=== PATIENT | male | born 1945 | race Caucasian/White ===

== ENCOUNTER 2022-06-21 13:12 | Inpatient (IN) | payer MEDICARE, SELFPAY ==
[2022-06-21] VITALS (137 sets, daily range): BP systolic 113–157; BP diastolic 46–102; PULSE 69–112; RESP 7–33; TEMP 36.5–36.8; O2SAT 91–96
--- NOTE | 2022-06-21 13:29 | ED.GENADUL_ITS ---
Discharge Plan Disposition Patient Disposition: Admit to [facility] Discharge Details Chief Complaint: Seizure Clinical Impression: Alcohol withdrawal seizure Primary Care Provider: Nhung,Local ED Provider: Rina Patiño Home Meds and New Rx's Prescriptions: No Action tamsulosin [Flomax] 0.4 mg Capsule 0.4 mg PO DAILY Medical Decision Making Medical Records Medical records reviewed: Yes I reviewed the patient's medical records. Medical records narrative: 1330 -- 76-year-old male with history of daily alcohol use and previous possible alcohol withdrawal seizure presents for witnessed seizure prior to arrival. He drinks 3-6 beers daily and last drink was yesterday afternoon. Patient appears somewhat confused as he does not remember the events of today. He has no acute complaints. He has no focal deficits on exam. He does appear somewhat slowed in his responses but is oriented x3. Heart rate 100s. Oxygen saturation 91% on room air. Lung sounds clear throughout. Consider aspiration pneumonia or PE. Suspect likely alcohol withdrawal seizure. Will obtain screening labs, CT head, CT chest, urinalysis, UDS, salicylates, acetaminophen and give IV fluids and IV Ativan to prevent additional seizure activity. Discussed concerns with daughter and son at bedside and that most likely patient will need admission to the hospital for continued monitoring for possible alcohol withdrawal seizure. They are requesting transfer to [facility] in [place] as this is close to home. 1600 --Labs and imaging reviewed. Normal white blood cell count. Bicarb 19, anion gap 17 which is likely consistent with post seizure activity. Remainder of labs reassuring. Urinalysis negative for infection. Negative salicylates and acetaminophen level. UDS positive for THC. FLUVID negative. CT head negative for acute findings. CT chest notes atelectasis or pneumonia in the lung bases. On reassessment patient appears more alert and answering questions more quickly. His oxygen saturation is 99% on room air and has no complaint of shortness of breath so do not suspect pneumonia at this time. We will consult [facility] for transfer. 1830 -- [facility] does not have any beds available but there may be some availability tomorrow if patient would want transfer there. Recommends admission here and consideration for transfer if indicated and desired. Plan discussed with son Aime and he is agreeable with admission here. 1900 --Case discussed with hospitalist who accepts patient for admission. Imaging Data Radiologic Study: Radiologist's impression: CT HEAD WO CLINICAL HISTORY: ? s/p seizure, r/o acute cva, mass. ? TECHNIQUE:? Imaging Protocol: Axial computed tomography images with coronal and sagittal reformatted images were created and reviewed COMPARISON:? No exams were available for comparison FINDINGS: The examination is limited due to patient motion artifact. Ventricles and Extra axial spaces: Normal in size and morphology for the patient's age. Hemorrhage: None. Cerebral parenchyma: No acute territorial infarct is seen.? Midline shift: None. Brainstem/Cerebellum: Normal. Calvarium: Normal. Visualized Paranasal sinuses/Mastoids: Clear. Soft Tissues: Unremarkable. IMPRESSION: 1. The examination is limited due to patient motion artifact. 2. No acute intracranial process. 3. Findings were discussed with the emergency department on 06/21/2022. CT CHEST PE CTA CLINICAL HISTORY: ? tachycardia, hypoxia, r/o PE. TECHNIQUE:? Imaging Protocol:? Axial CT angiography was performed with multi- slice acquisition and multi-planar and/or 3D reconstructions. CONTRAST MATERIAL:? Intravenous: Omnipaque 350 contrast volume:100 mL COMPARISON:? No exams were available for comparison FINDINGS: ?The examination is limited due to patient motion artifact. Tracheobronchial tree: Patent where visualized. Pulmonary parenchyma: There are bilateral basilar infiltrates present.? No architectural distortion. There is a calcified granuloma in the left lingula. Pulmonary Arteries: No evidence of filling defect to suggest pulmonary emboli. Mediastinum and Brii: No dominant adenopathy or fluid collection.? The esophagus is unremarkable.? Calcified lymph nodes are seen in the left hilum. Visualized thyroid gland: Unremarkable.? Pleura: No effusion or pneumothorax. Heart: The heart is not dilated. Coronary artery calcifications are present.? There is no evidence of right heart strain.? The RV to LV ratio is less than 1. No pericardial effusion.? Aorta: Thoracic aorta non-dilated. No evidence of dissection. Atherosclerosis is present. Upper abdomen:? Unremarkable. Soft tissues: Unremarkable.? Bones: Within normal limits for the patient's age.There are old healed left rib fractures.? Postsurgical changes are seen in the lower cervical and upper thoracic spine and the lower thoracic and lumbar spine. IMPRESSION: 1. No evidence of pulmonary embolism, thoracic aortic dissection or aneurysm.? 2. Bilateral dependent basilar infiltrates which may represent atelectasis.? Pneumonia cannot be entirely excluded.? Please correlate clinically. 3. Findings were discussed with Dr. Patiño at 3:33 p.m. on 06/21/2022. Lab Data Lab results reviewed: Yes I reviewed the patient's lab results. Labs: Laboratory Tests Range/Units 06/21/22 06/21/22 06/21/22 13:24 13:24 13:24 WBC (4.4-10.8) 10^3/uL 8.83 RBC (4.36-5.78) 10^6/uL 5.04 Hgb (13.5-17.5) g/dL 15.2 Hct (40.0-50.0) % 45.2 MCV (80-95) fL 90 MCH (27.0-33.0) pg 30.2 MCHC (32.0-36.0) % 33.6 RDW (11.8-14.1) % 12.2 Plt Count (130-400) 10^3/uL 235 MPV (8.0-11.0) fL 10.2 Immature Gran % 0.2 Neutrophils % 62.8 Lymphocytes % 25.1 Monocytes % 9.2 Eosinophils % 1.8 Basophils % 0.9 Nucleated RBC % (0.0-0.3) % 0.0 Absolute Neutrophils (1.2-6.7) 10^3/uL 5.54 Absolute Lymphocytes (1.2-3.4) 10^3/uL 2.22 Absolute Monocytes (0.1-0.8) 10^3/uL 0.81 H Absolute Eosinophils (0.0-0.7) 10^3/uL 0.16 Absolute Basophils (0.0-0.2) 10^3/uL 0.08 Sodium (136-145) mmol/L 136 Potassium (3.5-5.1) mmol/L 4.1 Chloride (98-107) mmol/L 100 Carbon Dioxide (21.0-32.0) mmol/L 19.0 L Anion Gap (3-11) mmol/L 17.0 H BUN (7-18) mg/dL 14 Creatinine (0.70-1.30) mg/dL 1.2 Est GFR (CKD-EPI 2020) (mL/min/1.73m2) 62.29 Glucose (74-106) mg/dL 101 Calcium (8.5-10.1) mg/dL 9.2 Magnesium (1.8-2.4) mg/dL 2.0 Total Bilirubin (0.2-1.0) mg/dL 0.6 AST (15-37) U/L 39 H ALT (16-63) U/L 31 Alkaline Phosphatase (46-116) U/L 96 Creatine Kinase (39-308) U/L 195 Troponin I (<or=60) ng/L < 50 Total Protein (6.4-8.2) g/dL 7.2 Albumin (3.4-5.0) g/dL 3.9 Urine Color (Yellow) Urine Clarity (Clear) Urine pH (5-8) Ur Specific Belva (1.005-1.025) Urine Protein (Negative) mg/dL Urine Ketones (Negative) mg/dL Urine Blood (Negative) Urine Nitrite (Negative) Urine Bilirubin (Negative) Urine Urobilinogen (Up to 0.2) mg/dL Ur Leukocyte Esterase (Negative) Urine Glucose (Negative) mg/dL Salicylates (<2.8) mg/dL Urine Opiates Screen (Negative) Urine Methadone Screen (Negative) Acetaminophen (10-30) ug/mL Ur Barbiturates Screen (Negative) Ur Tricyclics Screen (Negative) Ur Amphetamines Screen (Negative) U Benzodiazepines Scrn (Negative) Urine Cocaine Screen (Negative) Ur THC Screen (Negative) Ethyl Alcohol (<10) mg/dL < 3.0 COVID-19 Source SARS-CoV-2 (PCR) (Negative) Influenza Type A (PCR) (Negative) Influenza Type B (PCR) (Negative) RSV (PCR) (Negative) Range/Units 06/21/22 06/21/22 06/21/22 14:00 14:00 15:37 WBC (4.4-10.8) 10^3/uL RBC (4.36-5.78) 10^6/uL Hgb (13.5-17.5) g/dL Hct (40.0-50.0) % MCV (80-95) fL MCH (27.0-33.0) pg MCHC (32.0-36.0) % RDW (11.8-14.1) % Plt Count (130-400) 10^3/uL MPV (8.0-11.0) fL Immature Gran % Neutrophils % Lymphocytes % Monocytes % Eosinophils % Basophils % Nucleated RBC % (0.0-0.3) % Absolute Neutrophils (1.2-6.7) 10^3/uL Absolute Lymphocytes (1.2-3.4) 10^3/uL Absolute Monocytes (0.1-0.8) 10^3/uL Absolute Eosinophils (0.0-0.7) 10^3/uL Absolute Basophils (0.0-0.2) 10^3/uL Sodium (136-145) mmol/L Potassium (3.5-5.1) mmol/L Chloride (98-107) mmol/L Carbon Dioxide (21.0-32.0) mmol/L Anion Gap (3-11) mmol/L BUN (7-18) mg/dL Creatinine (0.70-1.30) mg/dL Est GFR (CKD-EPI 2020) (mL/min/1.73m2) Glucose (74-106) mg/dL Calcium (8.5-10.1) mg/dL Magnesium (1.8-2.4) mg/dL Total Bilirubin (0.2-1.0) mg/dL AST (15-37) U/L ALT (16-63) U/L Alkaline Phosphatase (46-116) U/L Creatine Kinase (39-308) U/L Troponin I (<or=60) ng/L Total Protein (6.4-8.2) g/dL Albumin (3.4-5.0) g/dL Urine Color (Yellow) Urine Clarity (Clear) Urine pH (5-8) Ur Specific Belva (1.005-1.025) Urine Protein (Negative) mg/dL Urine Ketones (Negative) mg/dL Urine Blood (Negative) Urine Nitrite (Negative) Urine Bilirubin (Negative) Urine Urobilinogen (Up to 0.2) mg/dL Ur Leukocyte Esterase (Negative) Urine Glucose (Negative) mg/dL Salicylates (<2.8) mg/dL < 2.8 Urine Opiates Screen (Negative) Negative Urine Methadone Screen (Negative) Negative Acetaminophen (10-30) ug/mL < 2 Ur Barbiturates Screen (Negative) Negative Ur Tricyclics Screen (Negative) Negative Ur Amphetamines Screen (Negative) Negative U Benzodiazepines Scrn (Negative) Negative Urine Cocaine Screen (Negative) Negative Ur THC Screen (Negative) Positive A Ethyl Alcohol (<10) mg/dL COVID-19 Source Nasopharynx SARS-CoV-2 (PCR) (Negative) Negative Influenza Type A (PCR) (Negative) Negative Influenza Type B (PCR) (Negative) Negative RSV (PCR) (Negative) Negative Range/Units 06/21/22 15:37 WBC (4.4-10.8) 10^3/uL RBC (4.36-5.78) 10^6/uL Hgb (13.5-17.5) g/dL Hct (40.0-50.0) % MCV (80-95) fL MCH (27.0-33.0) pg MCHC (32.0-36.0) % RDW (11.8-14.1) % Plt Count (130-400) 10^3/uL MPV (8.0-11.0) fL Immature Gran % Neutrophils % Lymphocytes % Monocytes % Eosinophils % Basophils % Nucleated RBC % (0.0-0.3) % Absolute Neutrophils (1.2-6.7) 10^3/uL Absolute Lymphocytes (1.2-3.4) 10^3/uL Absolute Monocytes (0.1-0.8) 10^3/uL Absolute Eosinophils (0.0-0.7) 10^3/uL Absolute Basophils (0.0-0.2) 10^3/uL Sodium (136-145) mmol/L Potassium (3.5-5.1) mmol/L Chloride (98-107) mmol/L Carbon Dioxide (21.0-32.0) mmol/L Anion Gap (3-11) mmol/L BUN (7-18) mg/dL Creatinine (0.70-1.30) mg/dL Est GFR (CKD-EPI 2020) (mL/min/1.73m2) Glucose (74-106) mg/dL Calcium (8.5-10.1) mg/dL Magnesium (1.8-2.4) mg/dL Total Bilirubin (0.2-1.0) mg/dL AST (15-37) U/L ALT (16-63) U/L Alkaline Phosphatase (46-116) U/L Creatine Kinase (39-308) U/L Troponin I (<or=60) ng/L Total Protein (6.4-8.2) g/dL Albumin (3.4-5.0) g/dL Urine Color (Yellow) Yellow Urine Clarity (Clear) Clear Urine pH (5-8) 6.0 Ur Specific Belva (1.005-1.025) 1.015 Urine Protein (Negative) mg/dL Negative Urine Ketones (Negative) mg/dL Negative Urine Blood (Negative) Negative Urine Nitrite (Negative) Negative Urine Bilirubin (Negative) Negative Urine Urobilinogen (Up to 0.2) mg/dL 0.2 Ur Leukocyte Esterase (Negative) Negative Urine Glucose (Negative) mg/dL Negative Salicylates (<2.8) mg/dL Urine Opiates Screen (Negative) Urine Methadone Screen (Negative) Acetaminophen (10-30) ug/mL Ur Barbiturates Screen (Negative) Ur Tricyclics Screen (Negative) Ur Amphetamines Screen (Negative) U Benzodiazepines Scrn (Negative) Urine Cocaine Screen (Negative) Ur THC Screen (Negative) Ethyl Alcohol (<10) mg/dL COVID-19 Source SARS-CoV-2 (PCR) (Negative) Influenza Type A (PCR) (Negative) Influenza Type B (PCR) (Negative) RSV (PCR) (Negative) ECG Data Attestation: I personally reviewed and interpreted this ECG (s) as follows: Interpretation: rate of 78, sinus, RBBB and LAFB, anterior Q waves, no stemi. HPI General Mode of arrival: EMS . Date/Time Provider Initiated Documentation: 06/21/22 13:14 . Limitations to Documentation: no limitations . Information obtained by: patient . HPI Narrative: Patient is a 76-year-old male with history of daily alcohol use and former history of possible alcohol withdrawal seizure presents for seizure prior to arrival. Patient states he has no memory of the events today. Daughter at bedside states that patient was visiting his who was in a longterm and was sitting in a chair when she was speaking to him and he suddenly became unresponsive and flexed his elbows and turned his head to the side suddenly with his eyes closed and became rigid. She said this lasted for approximately 10 minutes and then resolved. She states he was confused afterward. She states this appears consistent with a seizure he had last year. She states at that time he was admitted to [facility] for seizure likely in the setting of dehydration and alcohol withdrawal. Patient states he drinks between 3 and 6 beers daily. He states his last drink was yesterday afternoon. Daughter sta murali he would have normally had a drink by this afternoon today. Patient denies any injury and daughter states that he was sitting on the chair the entire time. Patient denies any headache, chest pain, difficulty breathing, abdominal pain, nausea, vomiting, diarrhea or urinary symptoms. He denies any recent illness. He denies any other new medications. Related Data Home Medications Medication Instructions Recorded Confirmed tamsulosin 0.4 mg capsule (Flomax) 0.4 mg PO DAILY 06/21/22 06/21/22 Allergies Allergy/AdvReac Type Severity Reaction Status Date / Time No Known Allergies Allergy Unverified 06/21/22 13:20 General Stated Complaint: Seizure MICHELE: 2 Review of Systems All systems reviewed & are unremarkable except as noted in HPI and below Constitutional Constitutional: Reports as per HPI, Denies chills and Denies fever(s) Eyes Eyes: Denies blurry vision ENT Ears, Nose, Mouth, and Throat: Denies dizziness, Denies sore throat and Denies throat swelling Cardiovascular Cardiovascular: Denies chest pain and Denies dyspnea Respiratory Respiratory: Denies cough and Denies dyspnea Gastrointestinal Gastrointestinal: Denies abdominal pain, Denies diarrhea and Denies vomiting Genitourinary Genitourinary: Denies hematuria and Denies dysuria Musculoskeletal Musculoskeletal: Denies back pain and Denies numbness Integumentary/Breasts Skin/Breast: Denies lesions and Denies rash Neurologic Neurologic: Denies dizziness, Denies localized weakness, Denies numbness and Reports convulsions Allergic/Immunologic Allergic/Immunologic: Denies throat swelling [facility] All Active Problems (Updated 06/21/22 @ 19:50 by Rina Patiño DO) Alcohol withdrawal seizure (Acute) Medical History (Updated 06/21/22 @ 19:50 by Rina Patiño DO) Seizure 2021, thought to be due to dehydration/ETOH withdrawal Surgical History (Updated 06/21/22 @ 13:55 by Rina Patiño DO) History of fusion of cervical spine History of lumbar fusion Social History Smoking/Tobacco Use Status: Current-Occasional Tobacco Type: smokeless tobacco Smoking risk assessment performed?: Yes Alcohol Intake: current Alcohol Intake frequency: 3 or more drinks per day Alcohol type: beer Drug use: Daily Substance use type: marijuana Exam Const General: cooperative and no acute distress Orientation: alert, awake and oriented x3 HENMT Head: normal to inspection Face and sinus: normal facial exam Eyes General: appearance normal, both eyes and all related structures Pupils: PERRL EOM: EOM intact bilaterally Neck Neck: normal visual inspection and No submandibular swelling Lymphatic: no lymphadenopathy noted Chest Chest: normal inspection of the chest and no tenderness Resp Effort & Inspection: normal respiratory effort and able to speak in complete sentences Auscultation: clear to auscultation bilaterally Cardio Rate: regular rate Rhythm: regular rhythm GI Inspection: normal to inspection Palpation: soft, not firm, not rigid and nontender Auscultation: hypoactive bowel sounds Back/Spine/Pelvis Thoracic/Lumbar Spine: thoracic and lumbar spine normal to inspection, No thoracic spinal tenderness and No lumbar spinal tenderness Skin General skin exam: no rashes or lesions noted Neuro General: patient alert, patient awake, patient oriented x3 and patient confused Cranial Nerves: CN's II-XI intact bilaterally Cognition: normal cognition Speech: speech normal Motor: muscle tone normal throughout and strength 5/5 throughout Sensory Exam: no sensory deficits noted Extrem General: normal to inspection, full ROM, capillary refill normal, no calf tenderness bilaterally and no edema Psych Appearance: grossly normal Mental Status: mental status grossly normal Speech and Movement: speech and movement normal Affect: normal affect Course Vital Signs Vital signs: Vital Signs Temperature 97.7 F 06/21/22 13:15 Pulse 112 H 06/21/22 13:15 Respiratory Rate 17 06/21/22 13:15 Blood Pressure 146/74 H 06/21/22 13:15 Pulse Oximetry 91 L 06/21/22 13:15 Temperature 97.7 F 06/21/22 13:15 Temperature Source Oral 06/21/22 13:15 Pulse 112 H 06/21/22 13:15 Respiratory Rate 17 06/21/22 13:15 Respiratory Effort Normal 06/21/22 13:18 Blood Pressure 146/74 H 06/21/22 13:15 Blood Pressure Position Sitting 06/21/22 13:15 Pulse Oximetry 91 L 06/21/22 13:15 Oxygen Delivery Method Room Air 06/21/22 13:15 Oxygen Flow Rate 0 06/21/22 13:15 PAWSS Have you Been Recently Intoxicated or Drunk Within the Last 30 days?: Yes Have you Ever Experienced Previous Episodes of Alcohol Withdrawal?: Yes Have you ever Experienced Withdrawal Seizures?: Yes Have you ever Experienced Delirium Tremens(DT)s?: No Have you ever undergone Alcohol Rehabilitation Treatment (i.e, inpt ot outpatient treatment programs)?: No Have you ever Experienced Blackouts?: Yes Have you ever Combined Alcohol with other Downers within the last 90 days?: Unable to Obtain Have you ever Combined Alcohol with any other Substance of Abuse during the last 90 days?: Unable to Obtain Positive Blood Alcohol level on Presentation? [PCS.BAL]: Unable to Obtain Evidence of Increased Autonomic Activity (i.e. HR>120, tremor, sweating, agitation, nausea)?: Unable to Obtain Result: 4
--- NOTE | 2022-06-21 13:30 | NUR.NOTE ---
seizure pads applied to bedrails.
[2022-06-21 13:39] LABS: Abs Immature Grans 0.02 10^3/uL (0.0-0.06); Absolute Basophil Count 0.08 10^3/uL (0.0-0.2); Absolute Eosinophil Count 0.16 10^3/uL (0.0-0.7); Absolute Lymphocyte Count 2.22 10^3/uL (1.2-3.4); Absolute Monocyte Count 0.81 10^3/uL (0.1-0.8); Absolute Neutrophil Count 5.54 10^3/uL (1.2-6.7); Basophils % 0.9; Eosinophils % 1.8; HCT 45.2 % (40.0-50.0); HGB 15.2 g/dL (13.5-17.5); Immature Grans % 0.2; Lymphocytes % 25.1; MCH 30.2 pg (27.0-33.0); MCHC 33.6 % (32.0-36.0); MCV 90 fL (80-95); MPV 10.2 fL (8.0-11.0); Monocytes % 9.2; Neutrophils % 62.8; Platelet Count 235 10^3/uL (130-400); RBC 5.04 10^6/uL (4.36-5.78); RDW 12.2 % (11.8-14.1); RDW-SD 39.8 fL; WBC 8.83 10^3/uL (4.4-10.8)
--- NOTE | 2022-06-21 13:45 | DI.CT_ITS ---
Exam(s) CT HEAD WO EXAM: CT HEAD WO CLINICAL HISTORY: s/p seizure, r/o acute cva, mass. TECHNIQUE: Imaging Protocol: Axial computed tomography images with coronal and sagittal reformatted images were created and reviewed COMPARISON: No exams were available for comparison FINDINGS: The examination is limited due to patient motion artifact. Ventricles and Extra axial spaces: Normal in size and morphology for the patient's age. Hemorrhage: None. Cerebral parenchyma: No acute territorial infarct is seen. Midline shift: None. Brainstem/Cerebellum: Normal. Calvarium: Normal. Visualized Paranasal sinuses/Mastoids: Clear. Soft Tissues: Unremarkable. IMPRESSION: 1. The examination is limited due to patient motion artifact. 2. No acute intracranial process. 3. Findings were discussed with the emergency department on 06/21/2022. RADIATION DOSE DELIVERED: 903.2mGy.cm Total DLP DATA REPOSITORY: All CT scans at this facility are submitted to the National Radiology Data Registry (NRDR) Dose Index Registry (DIR) with the [employer] ([employer]). RADIATION OPTIMIZATION: All CT scans at this facility use at least one of these dose optimization te chniques: automated exposure control; mA and/or kV adjustment per patient size (includes targeted exa ms where dose is matched to clinical indication); or iterative reconstruction.
--- NOTE | 2022-06-21 13:52 | DI.CT_ITS ---
Exam(s) CT CHEST PE CTA EXAM: CT CHEST PE CTA CLINICAL HISTORY: tachycardia, hypoxia, r/o PE. TECHNIQUE: Imaging Protocol: Axial CT angiography was performed with multi-slice acquisition and mu lti-planar and/or 3D reconstructions. CONTRAST MATERIAL: Intravenous: Omnipaque 350 contrast volume:100 mL COMPARISON: No exams were available for comparison FINDINGS: The examination is limited due to patient motion artifact. Tracheobronchial tree: Patent where visualized. Pulmonary parenchyma: There are bilateral basilar infiltrates present. No architectural distortion. There is a calcified granuloma in the left lingula. Pulmonary Arteries: No evidence of filling defect to suggest pulmonary emboli. Mediastinum and Brii: No dominant adenopathy or fluid collection. The esophagus is unremarkable. Ca lcified lymph nodes are seen in the left hilum. Visualized thyroid gland: Unremarkable. Pleura: No effusion or pneumothorax. Heart: The heart is not dilated. Coronary artery calcifications are present. There is no evidence of right heart strain. The RV to LV ratio is less than 1. No pericardial effusion. Aorta: Thoracic aorta non-dilated. No evidence of dissection. Atherosclerosis is present. Upper abdomen: Unremarkable. Soft tissues: Unremarkable. Bones: Within normal limits for the patient's age.There are old healed left rib fractures. Postsurgi romy changes are seen in the lower cervical and upper thoracic spine and the lower thoracic and lumbar spine. IMPRESSION: 1. No evidence of pulmonary embolism, thoracic aortic dissection or aneurysm. 2. Bilateral dependent basilar infiltrates which may represent atelectasis. Pneumonia cannot be enti rely excluded. Please correlate clinically. 3. Findings were discussed with Dr. Patiño at 3:33 p.m. on 06/21/2022. RADIATION DOSE DELIVERED: 439.92mGy.cm Total DLP DATA REPOSITORY: All CT scans at this facility are submitted to the National Radiology Data Registry (NRDR) Dose Index Registry (DIR) with the [employer] (ACR). RADIATION OPTIMIZATION: All CT scans at this facility use at least one of these dose optimization te chniques: automated exposure control; mA and/or kV adjustment per patient size (includes targeted exa ms where dose is matched to clinical indication); or iterative reconstruction.
[2022-06-21] MEDS: Normal Saline 1,000 ML 1000 ML IV (14:00)
[2022-06-21] MEDS: LORazepam 2 MG/ML VIAL 0.5 MG IVP (14:00)
[2022-06-21 14:01] LABS: ALT 31 U/L (16-63); AST 39 U/L (15-37); Albumin 3.9 g/dL (3.4-5.0); Alkaline Phosphatase 96 U/L (46-116); BUN 14 mg/dL (7-18); Bilirubin, Total 0.6 mg/dL (0.2-1.0); CREATININE 1.2 mg/dL (0.70-1.30); Calcium 9.2 mg/dL (8.5-10.1); Chloride 100 mmol/L (98-107); ETHANOL BLOOD < 3.0 mg/dL (<10); Estimated GFR 62.29 (mL/min/1.73m2); Glucose 101 mg/dL (74-106); Potassium 4.1 mmol/L (3.5-5.1); Sodium 136 mmol/L (136-145); Total Protein 7.2 g/dL (6.4-8.2); Troponin I < 50 ng/L (<or=60)
[2022-06-21 14:44] LABS: Acetaminophen < 2 ug/mL (10-30); Salicylate < 2.8 mg/dL (<2.8)
[2022-06-21 14:48] LABS: COVID-19 PCR Negative (Negative); Influenza A PCR Negative (Negative); Influenza B PCR Negative (Negative); RSV PCR Negative (Negative)
[2022-06-21 14:49] LABS: Source Nasopharynx
[2022-06-21] MEDS: Omnipaque 350 MG/ML 500 ML BTL-Imaging package IJ (15:10)
[2022-06-21] MEDS: Normal Saline - Diluent 50 ML VIAL IJ (15:12)
[2022-06-21 15:57] LABS: Bilirubin Negative (Negative); Blood Negative (Negative); Clarity Clear (Clear); Glucose Negative (Negative); Ketones Negative (Negative); Leukocyte Esterase Negative (Negative); Nitrite Negative (Negative); Specific Gravity 1.015 (1.005-1.025); Urobilinogen 0.2 mg/dL (Up to 0.2)
[2022-06-21 15:58] LABS: *AMPHETAMINES SCREEN URINE Negative (Negative); *BARBITURATES SCREEN URINE Negative (Negative); *BENZODIAZEPINES SCREEN URINE Negative (Negative); Cannabinoids THC Positive (Negative); Cocaine Screen,Urine Negative (Negative); METHADONE URINE SCREEN Negative (Negative); OPIATES URINE SCREEN Negative (Negative)
[2022-06-21 15:59] LABS: Tricyclic Antidepressants Negative (Negative)
--- NOTE | 2022-06-21 16:30 | RT.EKG_ITS ---
APPROVED REPORT Exam: Resting ECG Reason for Exam: seizure Patient Location: E HR:78 bpm ECG Measurements Heart Rate 78 AXIS UT 178 P 59 QRSd 148 QRS -61 QT 414 T 32 QTc 472 Conclusion Sinus rhythm...normal P axis, V-rate 60- 99 RBBB and LAFB...QRSd >120mS, axis(-40,240) Probable left ventricular hypertrophy...(RaVL+SV3)xQRSd >280 Sinus. RBBB. LBBB. No STEMI. I have reviewed and interpreted ECG and agree with software generated interpretation.
[2022-06-21] MEDS: MAGNESIUM SULFATE 8.12 MEQ, MULTIVITAMIN 10 ML, THIAMINE 100 MG, FOLIC ACID 1 MG in Nor... 168.867 MG IV (17:10)
--- NOTE | 2022-06-21 19:05 | NUR.NOTE ---
Nursing Note: report from MARVIN Wolfe. Pt observed lying quietly on stretcher, easily awakens, no complaints, IV meds infusing via pump. Awaiting inpatient bed assignment
[2022-06-21 19:35] LABS: Creatine Kinase 195 U/L (39-308)
--- NOTE | 2022-06-21 21:06 | HPE_ITS ---
Date of service: 06/21/22 Time of Service: 21:07 Assessment and Plan Assessment and plan (1) Alcohol withdrawal seizure: Status: Acute Assessment and plan: Load with phenobarbital. Monitor in the ICU. Check CPK in am. (2) Alcohol abuse: Status: Chronic Assessment and plan: Check levels of B12/folate. Monitor for recurrent sx of EtOH w/d. Supplement with MVI, thiamine. (3) Metabolic acidosis: Status: Acute Assessment and plan: Suspect this was due to dehydration/EtOH. This has now resolved post IVF. (4) Pulmonary infiltrates: Status: Acute Assessment and plan: procalcitonin is negative and the patient is asymptomatic. No abx at this time. IS. Suspect this is due to atelectasis. (5) DVT prophylaxis: Status: Acute Assessment and plan: Heparin SC (6) Discharge planning issues: Status: Acute Assessment and plan: Full code. Admit to the ICU. Total Critical Care Time 40 minutes. History of Present Illness History of Present Illness Chief Complaint: Unresponsive/convulsive episode Narrative: Mr Jacques is a 76 year old male with PMHx of EtOH abuse, probably EtOH w/d seizure last summer, and BPH, who was brought to [facility] ED today after having an episode of unresponsiveness and jerking while seated in a chair, then turning to the side and becoming rigid, followed by tonic clonic activity. This lasted about 10 minutes. Last drink was yesterday afternoon. Drinks 3-4 beers per day. The patient has no recollection of the event. He remembers sitting in a chair and then waking up in the ER. On arrival to ER, he was saturating 91% on RA, so there was a concern for possible aspiration. His CT imaging of the head is negative. CT of the chest shows bibasilar infiltrates: PNA vs atelectasis. His O2 sats improved to the high 90s essentially on their own while in the ER. The patient is from [facility] and was visiting his in the [facility] [place]. Patient/family requested transfer to [facility]. However, no beds were available at [facility] today. There might be some availability tomorrow (the patient was not pre-accepted in transfer). Hospitalist admission was requested at our facility for now. Review of Systems Narrative: In addition, the patient specifically denies fever, cough, shortness of breath. All systems reviewed & are unremarkable except as noted in HPI and below PFSH All Active Problems (Updated 06/21/22 @ 23:45 by Surekha Linares MD) Pulmonary infiltrates (Acute) Discharge planning issues (Acute) DVT prophylaxis (Acute) Metabolic acidosis (Acute) Alcohol abuse (Chronic) Alcohol withdrawal seizure (Acute) Medical History (Updated 06/21/22 @ 23:45 by Surekha Linares MD) BPH (benign prostatic hyperplasia) Seizure 2021, thought to be due to dehydration/ETOH withdrawal Surgical History (Updated 06/21/22 @ 13:55 by Rina Patiño DO) History of fusion of cervical spine History of lumbar fusion Social History (Updated 06/21/22 @ 23:45 by Surekha Linares MD) Smoking/Tobacco Use Status: Former Tobacco Use tobacco type: cigarettes Quit Date: 04/22/12 Pack-years: 30 Smoking risk assessment performed?: Yes Alcohol Intake: current Alcohol Intake frequency: 3 or more drinks per day Alcohol type: beer Drug use: Daily Substance use type: marijuana Meds Allergies and Home Medications Allergies Allergy/AdvReac Type Severity Reaction Status Date / Time No Known Allergies Allergy Unverified 06/21/22 13:20 Home Medications Medication Instructions Recorded Confirmed Type tamsulosin 0.4 mg capsule (Flomax) 0.4 mg PO DAILY 06/21/22 06/21/22 History Exam Narrative Exam Narrative: General: Pleasant forgetful male who is A&Ox2, laying comfortably in bed, not tremulous Neurological: A&Ox2, no focal deficits Psychiatric: Appropriate speech pattern/content Skin: Visible skin intact HEENT: Atraumatic, normocephalic, EOMI, dry MM, clear oropharynx, no submandib ular or cervical lymphadenopathy, no goiter or JVD Cardiovascular: RRR, no m/r/g Lungs: coarse breath sounds B Gastrointestinal: soft, nontender, nondistended Genitourinary: deferred Extremities: trace edema BLEs to B knees, no c/c. Results Imaging Additional studies: CT head: 1. The examination is limited due to patient motion artifact. 2. No acute intracranial process. CTA chest; 1. No evidence of pulmonary embolism, thoracic aortic dissection or aneurysm.? 2. Bilateral dependent basilar infiltrates which may represent atelectasis.? Pneumonia cannot be entirely excluded.? Please correlate clinically. EKG: NSR, HR 78. RBBB/LAFB. No acute iscehmia. Labs 06/21/22 13:24 06/21/22 13:24 Labs: Laboratory Results - last 24 hr 06/21/22 06/21/22 06/21/22 13:24 13:24 13:24 WBC 8.83 RBC 5.04 Hgb 15.2 Hct 45.2 MCV 90 MCH 30.2 MCHC 33.6 RDW 12.2 Plt Count 235 MPV 10.2 Immature Gran % 0.2 Neutrophils % 62.8 Lymphocytes % 25.1 Monocytes % 9.2 Eosinophils % 1.8 Basophils % 0.9 Nucleated RBC % 0.0 Absolute Neutrophils 5.54 Absolute Lymphocytes 2.22 Absolute Monocytes 0.81 H Absolute Eosinophils 0.16 Absolute Basophils 0.08 Sodium 136 Potassium 4.1 Chloride 100 Carbon Dioxide 19.0 L Anion Gap 17.0 H BUN 14 Creatinine 1.2 Est GFR (CKD-EPI 2020) 62.29 Glucose 101 Calcium 9.2 Magnesium 2.0 Total Bilirubin 0.6 AST 39 H ALT 31 Alkaline Phosphatase 96 Creatine Kinase 195 Troponin I < 50 Total Protein 7.2 Albumin 3.9 Urine Color Urine Clarity Urine pH Ur Specific Globe Urine Protein Urine Ketones Urine Blood Urine Nitrite Urine Bilirubin Urine Urobilinogen Ur Leukocyte Esterase Urine Glucose Salicylates Urine Opiates Screen Urine Methadone Screen Acetaminophen Ur Barbiturates Screen Ur Tricyclics Screen Ur Amphetamines Screen U Benzodiazepines Scrn Urine Cocaine Screen Ur THC Screen Ethyl Alcohol < 3.0 COVID-19 Source SARS-CoV-2 (PCR) Influenza Type A (PCR) Influenza Type B (PCR) RSV (PCR) 06/21/22 06/21/22 06/21/22 14:00 14:00 15:37 WBC RBC Hgb Hct MCV MCH MCHC RDW Plt Count MPV Immature Gran % Neutrophils % Lymphocytes % Monocytes % Eosinophils % Basophils % Nucleated RBC % Absolute Neutrophils Absolute Lymphocytes Absolute Monocytes Absolute Eosinophils Absolute Basophils Sodium Potassium Chloride Carbon Dioxide Anion Gap BUN Creatinine Est GFR (CKD-EPI 2020) Glucose Calcium Magnesium Total Bilirubin AST ALT Alkaline Phosphatase Creatine Kinase Troponin I Total Protein Albumin Urine Color Urine Clarity Urine pH Ur Specific Globe Urine Protein Urine Ketones Urine Blood Urine Nitrite Urine Bilirubin Urine Urobilinogen Ur Leukocyte Esterase Urine Glucose Salicylates < 2.8 Urine Opiates Screen Negative Urine Methadone Screen Negative Acetaminophen < 2 Ur Barbiturates Screen Negative Ur Tricyclics Screen Negative Ur Amphetamines Screen Negative U Benzodiazepines Scrn Negative Urine Cocaine Screen Negative Ur THC Screen Positive A Ethyl Alcohol COVID-19 Source Nasopharynx SARS-CoV-2 (PCR) Negative Influenza Type A (PCR) Negative Influenza Type B (PCR) Negative RSV (PCR) Negative 06/21/22 15:37 WBC RBC Hgb Hct MCV MCH MCHC RDW Plt Count MPV Immature Gran % Neutrophils % Lymphocytes % Monocytes % Eosinophils % Basophils % Nucleated RBC % Absolute Neutrophils Absolute Lymphocytes Absolute Monocytes Absolute Eosinophils Absolute Basophils Sodium Potassium Chloride Carbon Dioxide Anion Gap BUN Creatinine Est GFR (CKD-EPI 2020) Glucose Calcium Magnesium Total Bilirubin AST ALT Alkaline Phosphatase Creatine Kinase Troponin I Total Protein Albumin Urine Color Yellow Urine Clarity Clear Urine pH 6.0 Ur Specific Globe 1.015 Urine Protein Negative Urine Ketones Negative Urine Blood Negative Urine Nitrite Negative Urine Bilirubin Negative Urine Urobilinogen 0.2 Ur Leukocyte Esterase Negative Urine Glucose Negative Salicylates Urine Opiates Screen Urine Methadone Screen Acetaminophen Ur Barbiturates Screen Ur Tricyclics Screen Ur Amphetamines Screen U Benzodiazepines Scrn Urine Cocaine Screen Ur THC Screen Ethyl Alcohol COVID-19 Source SARS-CoV-2 (PCR) Influenza Type A (PCR) Influenza Type B (PCR) RSV (PCR) Last Vital Signs Temp 36.5 C 06/21/22 13:15 Pulse 81 06/21/22 20:31 Resp 16 06/21/22 19:10 BP 144/74 H 06/21/22 20:31 Pulse Ox 91 L 06/21/22 13:15 PAWSS Have you Been Recently Intoxicated or Drunk Within the Last 30 days?: Yes Have you Ever Experienced Previous Episodes of Alcohol Withdrawal?: Yes Have you ever Experienced Withdrawal Seizures?: Yes Have you ever Experienced Delirium Tremens(DT)s?: No Have you ever undergone Alcohol Rehabilitation Treatment (i.e, inpt ot outpatient treatment programs)?: No Have you ever Experienced Blackouts?: Yes Have you ever Combined Alcohol with other Downers within the last 90 days?: Unable to Obtain Have you ever Combined Alcohol with any other Substance of Abuse during the last 90 days?: Unable to Obtain Positive Blood Alcohol level on Presentation? [PCS.BAL]: Unable to Obtain Evidence of Increased Autonomic Activity (i.e. HR>120, tremor, sweating, agita tion, nausea)?: Unable to Obtain Result: 4 Time Spent Time spent with Patient: 40-54 minutes Time was spent: preparing to see the patient(eg.review tests), obtaining and/or reviewing separately otained hiistory, ordering medications,tests, procedures, referring, communicating with other health resident care manager rn, indepentently interpreting results, counseling the patient and care coordination
[2022-06-21 21:35] LABS: Lactate 0.9 mmol/L (0.6-1.4)
[2022-06-21 21:48] LABS: Anion Gap 8.9 mmol/L (3-11); BUN 12 mg/dL (7-18); CO2 26.1 mmol/L (21.0-32.0); Calcium 8.7 mg/dL (8.5-10.1); Chloride 104 mmol/L (98-107); Estimated GFR 77.52 (mL/min/1.73m2); Glucose 92 mg/dL (74-106); Potassium 3.8 mmol/L (3.5-5.1); Sodium 139 mmol/L (136-145)
[2022-06-21] MEDS: Heparin 5,000 UNITS/ML VIAL 5000 UNITS SC (21:57)
[2022-06-21] MEDS: Acetaminophen 325 MG TAB PO (21:57)
[2022-06-21] MEDS: Normal Saline Flush 10 ML SYR IVP (21:58)
[2022-06-21 22:08] LABS: Procalcitonin < 0.1 ng/mL
[2022-06-21] MEDS: Normal Saline 500 ML 30 ML IV (23:10)
[2022-06-21] MEDS: PHENobarbital 250 MG in Normal Saline 50 ML 100 MG IVPB (23:40)
[2022-06-22] VITALS (52 sets, daily range): BP systolic 114–150; BP diastolic 45–92; PULSE 60–102; RESP 6–23; TEMP 36.5–37.1; O2SAT 91–99
--- NOTE | 2022-06-22 | DI.MRI_ITS ---
Exam(s) MR BRAIN WO EXAM: MR BRAIN WO CLINICAL HISTORY: seizure TECHNIQUE: Multiplanar multisequence MRI of the brain was performed. COMPARISON: CT CT HEAD WO from 06/21/2022 FINDINGS: CEREBRAL PARENCHYMA: There is no evidence of intracranial hemorrhage, mass effect, or shift of midline structures. There are no extra-axial fluid collections. No evidence of cerebellar tonsillar ectopia. None size of the ventricles is somewhat out of proportion when compared to the size of the overlying cortical sulci. Possible normal pressure hydrocephalus. There is no significant focal signal abnormality in the cerebellar hemispheres nor within the tracey, m idbrain, and thalami. There are multiple individual and confluent foci of FLAIR bright signal abnormality in the periventri cular white matter, not associated with hemorrhage or surrounding edema nor restricted diffusion. There is no significant focal signal abnormality evident on diffusion imaging to suggest acute ischem ic event. SWI: No evidence of microhemorrhages. PITUITARY GLAND: No mass nor parasellar abnormality. No obvious abnormality in the cavernous sinuses. FLOW VOIDS: The expected flow void are noted. No evidence of obvious aneurysm nor obvious vascular ma lformation. PARANASAL SINUSES: The visualized paranasal sinuses appear unremarkable. No obvious finding ORBITS: No obvious findings. IMPRESSION: 1. Multiple small foci of signal abnormality in the periventricular white matter probably consistent with chronic small vessel ischemic changes. 2. Size of the lateral and 3rd ventricles somewhat prominent and out of proportion compared to the si ze of the overlying cortical sulci. Possibility of normal pressure hydrocephalus. Correlation with any clinical signs of dementia, gait disturbance, and incontinence recommended. DATA REPOSITORY:
[2022-06-22] MEDS: Normal Saline Flush 10 ML SYR IVP (02:33)
[2022-06-22] MEDS: PHENobarbital 250 MG in Normal Saline 50 ML 100 MG IVPB (02:34)
[2022-06-22] MEDS: Heparin 5,000 UNITS/ML VIAL 5000 UNITS SC ×3 (05:26→22:10)
--- NOTE | 2022-06-22 05:59 | NUR.NOTE ---
Nursing Note: Son updated on patient condition. No seizures, Low scores on alcohol withdrawal assessment score. Son stated that his Mom is at the [facility] and is dying. Son stated that his Dad experienced the seizure after he was told by the doctor that his was dying. Son said that patients last drink was on Saturday. Son Aime said that he can't take his Dad home if hospitalization will be prolonged and would prefer to [facility] in [place]. Please have MD call after rounds.
[2022-06-22 06:45] LABS: Abs Immature Grans 0.02 10^3/uL (0.0-0.06); Absolute Basophil Count 0.09 10^3/uL (0.0-0.2); Absolute Eosinophil Count 0.22 10^3/uL (0.0-0.7); Absolute Lymphocyte Count 0.89 10^3/uL (1.2-3.4); Absolute Monocyte Count 0.76 10^3/uL (0.1-0.8); Basophils % 1.3; Eosinophils % 3.2; HGB 13.5 g/dL (13.5-17.5); Immature Grans % 0.3; Lymphocytes % 13.1; MCH 30.3 pg (27.0-33.0); MCHC 33.8 % (32.0-36.0); MCV 90 fL (80-95); MPV 10.2 fL (8.0-11.0); Monocytes % 11.2; Neutrophils % 70.9; Platelet Count 204 10^3/uL (130-400); RBC 4.46 10^6/uL (4.36-5.78); RDW 12.4 % (11.8-14.1); RDW-SD 40.7 fL; WBC 6.78 10^3/uL (4.4-10.8)
[2022-06-22 07:39] LABS: Vitamin B12 454 pg/mL (193-986)
[2022-06-22 07:42] LABS: Folate > 20.0 ng/mL (8.6-20.0)
[2022-06-22 07:49] LABS: Anion Gap 9.4 mmol/L (3-11); BUN 11 mg/dL (7-18); CO2 24.6 mmol/L (21.0-32.0); Calcium 8.4 mg/dL (8.5-10.1); Chloride 106 mmol/L (98-107); Estimated GFR 77.52 (mL/min/1.73m2); Glucose 83 mg/dL (74-106); Potassium 3.8 mmol/L (3.5-5.1); Sodium 140 mmol/L (136-145)
[2022-06-22 07:55] LABS: Creatine Kinase 811 U/L (39-308)
[2022-06-22] MEDS: Tamsulosin 0.4 MG CAPCR PO (09:20)
[2022-06-22] MEDS: Thiamine 100 MG TAB PO (09:21)
[2022-06-22] MEDS: Folic Acid 1 MG TAB PO (09:21)
[2022-06-22] MEDS: Multivitamin TAB 1 TAB PO (09:21)
--- NOTE | 2022-06-22 09:28 | INITIAL_ITS ---
- If Service Date Differs Date of service: 06/22/22 Time of Service: 09:28 Care Management Initial Assess REASON FOR HOSPITALIZATION:: Alcohol withdrawal seizure PAST MEDICAL HISTORY/PAST SURGICAL HISTORY:: All Active Problems (Updated 06/21/22 @ 23:45 by Surekha Linares MD). Pulmonary infiltrates (Acute). Discharge planning issues (Acute). DVT prophylaxis (Acute). Metabolic acidosis (Acute). Alcohol abuse (Chronic). Alcohol withdrawal seizure (Acute). Medical History (Updated 06/21/22 @ 23:45 by Surekha Linares MD). BPH (benign prostatic hyperplasia). Seizure. 2021, thought to be due to dehydration/ETOH withdrawal. Surgical History (Updated 06/21/22 @ 13:55 by Rina Patiño DO). History of fusion of cervical spine. History of lumbar fusion PREVIOUS FUNCTIONAL STATUS/SOCIAL/FAMILY SUPPORTS:: Edin lives alone with his dog in [place], his lives at a [facility] nursing facility. Edin has a daughter and three sons that live in [facility]. His son is taking care of his dog while he is at the hospital. Edin reports that he drives and is independent with his ADL's at baseline. His second son visits him every saturday after scientologist and brings him groceries and beer. CURRENT FUNCTIONAL STATUS:: Edin was lying in bed when CM met with him. He is awake and engages in conversation and offers indirect reponses throughout this interview. He identifies his four children as daughter, son, son, son and later in the coversation shares that his primary support is his second son. Edin reports that he uses [facility] and provided the phone number from memory. ADVANCE DIRECTIVES:: None on file Has patient been provided with info about the portal/API?: Yes Did the patient sign up for the portal?: No CODE STATUS:: Full Code INSURANCE COVERAGE / FINANCIAL ISSUES:: [email or web address]. Medicare CURRENT HOME/COMMUNITY SERVICES/EQUIPMENT:: None PRIMARY CARE PHYSICIAN:: [facility] POTENTIAL DISCHARGE NEEDS:: Evaluations for further community needs. [facility] covery support, once medically clear PATIENT/FAMILY EDUCATION NEEDS:: Review discharge instructions, limitations, and plan to follow up with community providers and resources. Discuss ask me three. TRANSPORTATION:: Via private vehile with family. PLAN:: Edin is being closely monitored and [facility]. Anticipate, Edin will discharge home via private vehicle with family when medically ready per provider. He will follow up with his PCP and [facility]. At this time he does not want to discuss his ETOH use.
--- NOTE | 2022-06-22 11:04 | PGE_ITS ---
Date of Service Date of service: 06/22/22 Time of Service: 11:04 Assessment and Plan Assessment and plan (1) Alcohol withdrawal seizure: Status: Acute Assessment and plan: Patient was given a loading dose of 830 mg of phenobarbital last night and has not required any further phenobarbital dosing. This is equivalent to about 11 mg/kg. As the patient's had no further seizures not showing further signs of alcohol withdrawal I think he can be discharged home later today once he completes his seizure work-up which will include inpatient EEG if it is available and an MRI scan of the brain. Unfortunately neurology is not available today therefore we will be getting a neurology consult. Patient will be set up with a neurology referral upon discharge to be completed at [facility] as an outpatient. Patient will be discharged home on Keppra 1000 mg p.o. twice daily (2) Alcohol abuse: Status: Chronic Assessment and plan: Normal B12 and folate levels. Monitor for recurrent sx of EtOH w/d. Supplement with MVI, thiamine. (3) Metabolic acidosis: Status: Resolved Assessment and plan: Suspect this was due to dehydration/EtOH. This has now resolved post IVF. (4) Pulmonary infiltrates: Status: Acute Assessment and plan: procalcitonin is negative and the patient is asymptomatic. No abx at this time. IS. Suspect this is due to atelectasis. (5) DVT prophylaxis: Status: Acute Assessment and plan: Heparin SC (6) Discharge planning issues: Status: Acute Assessment and plan: Full code. Patient to be transferred out of ICU and discharged home later this afternoon once his MRI scan and EEG are completed. Subjective Subjective Interval history since last seen: Patient was very irritated when I questioned him about his drinking history and when I suggested that his seizures were related to alcohol withdrawal. His son and [id number] who are in the room were also very protective of him and suggested that the patient's other son may have mislabeled him with regard to his drinking history. Nevertheless the patient did admit that he has had a previous seizure episode but never had an neurology work-up. Patient lives in the [facility] area and has no inclination to follow-up with local neurologist here in [facility]. Patient would like to be discharged home today. I told him that I would like to start him on Keppra first and try to get an EEG today and an MRI scan of the brain today to rule out any structural neurologic injury that would predispose to seizures. I also recommend that he not drive or perform any activities that could potentially jeopardize his health in the event that he has another seizure i.e. no swimming and no tub baths no climbing up ladders or heights nor use with any dangerous tools that could lead to injury if he were to have a seizure. I recommend that he not drive until he is cleared by a neurologist. I have asked case management to look into obtaining a neurologist in the [facility] area. I have been informed that there is no neurologist that goes to [facility] and that the nearest neurologist would be the [facility]. Patient is agreeable to stay for the EEG and MRI scan but wants to be discharged home later today. Exam Narrative Exam Narrative: Edin is alert and oriented person place time circumstance. He shows irritability when I talk with him about his alcohol use but that he quickly calms down and is able to carry on conversation with me. 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 Objective Last Vital Signs Temp 36.6 C 06/22/22 09:30 Pulse 69 06/22/22 09:30 Resp 22 06/22/22 09:30 BP 148/69 H 06/22/22 09:30 Pulse Ox 91 L 06/22/22 09:30 Laboratory Results - last 24 hr 06/21/22 06/21/22 06/21/22 13:24 13:24 13:24 WBC 8.83 RBC 5.04 Hgb 15.2 Hct 45.2 MCV 90 MCH 30.2 MCHC 33.6 RDW 12.2 Plt Count 235 MPV 10.2 Immature Gran % 0.2 Neutrophils % 62.8 Lymphocytes % 25.1 Monocytes % 9.2 Eosinophils % 1.8 Basophils % 0.9 Nucleated RBC % 0.0 Absolute Neutrophils 5.54 Absolute Lymphocytes 2.22 Absolute Monocytes 0.81 H Absolute Eosinophils 0.16 Absolute Basophils 0.08 VBG Lactate Sodium 136 Potassium 4.1 Chloride 100 Carbon Dioxide 19.0 L Anion Gap 17.0 H BUN 14 Creatinine 1.2 Est GFR (CKD-EPI 2020) 62.29 Glucose 101 Calcium 9.2 Magnesium 2.0 Total Bilirubin 0.6 AST 39 H ALT 31 Alkaline Phosphatase 96 Creatine Kinase 195 Troponin I < 50 Total Protein 7.2 Albumin 3.9 Vitamin B12 Folate Procalcitonin Urine Color Urine Clarity Urine pH Ur Specific [place] Urine Protein Urine Ketones Urine Blood Urine Nitrite Urine Bilirubin Urine Urobilinogen Ur Leukocyte Esterase Urine Glucose Salicylates Urine Opiates Screen Urine Methadone Screen Acetaminophen Ur Barbiturates Screen Ur Tricyclics Screen Ur Amphetamines Screen U Benzodiazepines Scrn Urine Cocaine Screen Ur THC Screen Ethyl Alcohol < 3.0 COVID-19 Source SARS-CoV-2 (PCR) Influenza Type A (PCR) Influenza Type B (PCR) RSV (PCR) 06/21/22 06/21/22 06/21/22 14:00 14:00 15:37 WBC RBC Hgb Hct MCV MCH MCHC RDW Plt Count MPV Immature Gran % Neutrophils % Lymphocytes % Monocytes % Eosinophils % Basophils % Nucleated RBC % Absolute Neutrophils Absolute Lymphocytes Absolute Monocytes Absolute Eosinophils Absolute Basophils VBG Lactate Sodium Potassium Chloride Carbon Dioxide Anion Gap BUN Creatinine Est GFR (CKD-EPI 2020) Glucose Calcium Magnesium Total Bilirubin AST ALT Alkaline Phosphatase Creatine Kinase Troponin I Total Protein Albumin Vitamin B12 Folate Procalcitonin Urine Color Urine Clarity Urine pH Ur Specific [place] Urine Protein Urine Ketones Urine Blood Urine Nitrite Urine Bilirubin Urine Urobilinogen Ur Leukocyte Esterase Urine Glucose Salicylates < 2.8 Urine Opiates Screen Negative Urine Methadone Screen Negative Acetaminophen < 2 Ur Barbiturates Screen Negative Ur Tricyclics Screen Negative Ur Amphetamines Screen Negative U Benzodiazepines Scrn Negative Urine Cocaine Screen Negative Ur THC Screen Positive A Ethyl Alcohol COVID-19 Source Nasopharynx SARS-CoV-2 (PCR) Negative Influenza Type A (PCR) Negative Influenza Type B (PCR) Negative RSV (PCR) Negative 06/21/22 06/21/22 06/21/22 15:37 21:30 21:30 WBC RBC Hgb Hct MCV MCH MCHC RDW Plt Count MPV Immature Gran % Neutrophils % Lymphocytes % Monocytes % Eosinophils % Basophils % Nucleated RBC % Absolute Neutrophils Absolute Lymphocytes Absolute Monocytes Absolute Eosinophils Absolute Basophils VBG Lactate 0.9 Sodium 139 Potassium 3.8 Chloride 104 Carbon Dioxide 26.1 Anion Gap 8.9 BUN 12 Creatinine 1.0 Est GFR (CKD-EPI 2020) 77.52 Glucose 92 Calcium 8.7 Magnesium Total Bilirubin AST ALT Alkaline Phosphatase Creatine Kinase Troponin I Total Protein Albumin Vitamin B12 Folate Procalcitonin < 0.1 Urine Color Yellow Urine Clarity Clear Urine pH 6.0 Ur Specific [place] 1.015 Urine Protein Negative Urine Ketones Negative Urine Blood Negative Urine Nitrite Negative Urine Bilirubin Negative Urine Urobilinogen 0.2 Ur Leukocyte Esterase Negative Urine Glucose Negative Salicylates Urine Opiates Screen Urine Methadone Screen Acetaminophen Ur Barbiturates Screen Ur Tricyclics Screen Ur Amphetamines Screen U Benzodiazepines Scrn Urine Cocaine Screen Ur THC Screen Ethyl Alcohol COVID-19 Source SARS-CoV-2 (PCR) Influenza Type A (PCR) Influenza Type B (PCR) RSV (PCR) 06/22/22 06/22/22 06/22/22 05:45 05:45 05:45 WBC 6.78 RBC 4.46 Hgb 13.5 Hct 40.0 MCV 90 MCH 30.3 MCHC 33.8 RDW 12.4 Plt Count 204 MPV 10.2 Immature Gran % 0.3 Neutrophils % 70.9 Lymphocytes % 13.1 Monocytes % 11.2 Eosinophils % 3.2 Basophils % 1.3 Nucleated RBC % 0.0 Absolute Neutrophils 4.80 Absolute Lymphocytes 0.89 L Absolute Monocytes 0.76 Absolute Eosinophils 0.22 Absolute Basophils 0.09 VBG Lactate Sodium 140 Potassium 3.8 Chloride 106 Carbon Dioxide 24.6 Anion Gap 9.4 BUN 11 Creatinine 1.0 Est GFR (CKD-EPI 2020) 77.52 Glucose 83 Calcium 8.4 L Magnesium 2.0 Total Bilirubin AST ALT Alkaline Phosphatase Creatine Kinase 811 H Troponin I Total Protein Albumin Vitamin B12 454 Folate > 20.0 H Procalcitonin Urine Color Urine Clarity Urine pH Ur Specific [place] Urine Protein Urine Ketones Urine Blood Urine Nitrite Urine Bilirubin Urine Urobilinogen Ur Leukocyte Esterase Urine Glucose Salicylates Urine Opiates Screen Urine Methadone Screen Acetaminophen Ur Barbiturates Screen Ur Tricyclics Screen Ur Amphetamines Screen U Benzodiazepines Scrn Urine Cocaine Screen Ur THC Screen Ethyl Alcohol COVID-19 Source SARS-CoV-2 (PCR) Influenza Type A (PCR) Influenza Type B (PCR) RSV (PCR) PAWSS Have you Been Recently Intoxicated or Drunk Within the Last 30 days?: Yes Have you Ever Experienced Previous Episodes of Alcohol Withdrawal?: Yes Have you ever Experienced Withdrawal Seizures?: Yes Have you ever Experienced Delirium Tremens(DT)s?: No Have you ever undergone Alcohol Rehabilitation Treatment (i.e, inpt ot outpatie nt treatment programs)?: No Have you ever Experienced Blackouts?: Yes Have you ever Combined Alcohol with other Downers within the last 90 days?: Unable to Obtain Have you ever Combined Alcohol with any other Substance of Abuse during the last 90 days?: Unable to Obtain Positive Blood Alcohol level on Presentation? [PCS.BAL]: Unable to Obtain Evidence of Increased Autonomic Activity (i.e. HR>120, tremor, sweating, agitation, nausea)?: Unable to Obtain Result: 4 Time Spent with Patient Time Spent with Patient: 25-34 minutes Time was spent: preparing to see the patient(eg.review tests), obtaining and/or reviewing separately otained hiistory, ordering medications,tests, procedures, indepentently interpreting results and counseling the patient
[2022-06-22] MEDS: Acetaminophen 325 MG TAB PO ×2 (12:44→19:40)
[2022-06-22] MEDS: levETIRAcetam 1,000 MG in Normal Saline 100 ML 400 MG IVPB (12:51)
--- NOTE | 2022-06-22 20:16 | NUR.NOTE ---
Nursing Note: Edin and I spoke at length about alcohol use, withdrawal, physical health, mental health, family, choices, and consequences. This conversation cannot be documented in its entirety due to its length. Of importance, he made concerning statements regarding his desire to live, stating he would be happy if he as a result of drinking, referencing his age and anticipating losing his (receiving end of life care at [facility] in [place]). However, he also states drinking does not impair his ability to function in daily life, stating, I still function. I still take care of the house and do everything. I pay the bills. -- Edin then admits he has had a harder time with things like bills lately, but expresses that he reached a point where he just didn't feel like dealing with it anymore. When I brought up that his children still love him and want him home and healthy, Edin shrugged and stated, so? -- These are only a few specifics, but this attitude/perspective was consistent throughout the conversation. While I did not glean from this conversation that Edin is specifically/actively suicidal, he does seem to express sentiments consistent with depression. I respect that Edin has the right to make his own choices for his healthcare and life. However, I do have concerns about his mental health and believe he would benefit from a psych evaluation to determine if he is experiencing depression and might be treated for it.
[2022-06-22] MEDS: levETIRAcetam 1,000 MG in Normal Saline 100 ML 382.609 MG IVPB (23:26)
[2022-06-23] VITALS (19 sets, daily range): BP systolic 112–186; BP diastolic 51–103; PULSE 64–95; RESP 11–25; TEMP 36.5–37.1; O2SAT 94–97
[2022-06-23] MEDS: Heparin 5,000 UNITS/ML VIAL 5000 UNITS SC (06:50)
[2022-06-23] MEDS: Folic Acid 1 MG TAB PO (08:09)
[2022-06-23] MEDS: Tamsulosin 0.4 MG CAPCR PO (08:09)
[2022-06-23] MEDS: Thiamine 100 MG TAB PO (08:09)
[2022-06-23] MEDS: Multivitamin TAB 1 TAB PO (08:09)
--- NOTE | 2022-06-23 12:00 | PGE_ITS ---
Date of Service Date of service: 06/23/22 Time of Service: 12:00 Assessment and Plan Assessment and plan (1) Alcohol withdrawal seizure: Status: Acute Assessment and plan: Discharged home to the care of his family with outpatient follow-up with neurology at [facility]. Continue Keppra on oral dose of 1000 mg twice a day. Professional time spent interviewing and examining patient, discussion of goals of care with hospital team (care management, nursing and consulting professionals) was 20 minutes. (2) Alcohol abuse: Status: Chronic Assessment and plan: Continue thiamine and folic acid and multivitamin supplement as outpatient. (3) Pulmonary infiltrates: Status: Acute Assessment and plan: procalcitonin is negative and the patient is asymptomatic. No abx at this time. IS. Suspect this is due to atelectasis. I will recommend a follow-up PA lateral chest x-ray in 2 to 4 weeks to ensure that the infiltrates have cleared. (4) DVT prophylaxis: Status: Acute Assessment and plan: Heparin SC (5) Discharge planning issues: Status: Acute Assessment and plan: Full code. Patient be discharged home today to the care of his family. Follow-up will be with his primary care provider in the [facility] and he will also need follow-up with neurology services at [facility]. Subjective Subjective Interval history since last seen: Edin feels fine he has no complaints. Per nursing he had no seizures overnight and his CIWA scores have been low (0-2) not requiring any further phenobarbital. He continues to receive Keppra 1000 mg IV every 12 hours which upon discharge I will switch over to oral Keppra. I explained to Edin that he needs to see a neurologist I am recommend that he follow-up with a neurologist at the [facility] for 2 reasons 1 to evaluate his seizures and secondly to evaluate his ventriculomegaly. I explained to him that the increased spaces in the brain could be contributing to pressure on the brain which then can lead to a multitude of symptoms including his mild cognitive impairment as well as his ambulatory dysfunction and his urinary symptoms. Exam Narrative Exam Narrative: Edin is alert he is oriented to person place and circumstance. He is much more agreeable today compared to yesterday. He indicated his gratefulness to his nurses and intends to put in a complementary note. He has no tremors. No signs of withdrawal no diaphoresis no hallucinations. Objective Last Vital Signs Temp 37.1 C 06/23/22 07:39 Pulse 77 06/23/22 07:39 Resp 16 06/23/22 07:39 BP 161/76 H 06/23/22 07:39 Pulse Ox 95 06/23/22 07:39 PAWSS Have you Been Recently Intoxicated or Drunk Within the Last 30 days?: Yes Have you Ever Experienced Previous Episodes of Alcohol Withdrawal?: Yes Have you ever Experienced Withdrawal Seizures?: Yes Have you ever Experienced Delirium Tremens(DT)s?: No Have you ever undergone Alcohol Rehabilitation Treatment (i.e, inpt ot outpatient treatment programs)?: No Have you ever Experienced Blackouts?: Yes Have you ever Combined Alcohol with other Downers within the last 90 days?: Unable to Obtain Have you ever Combined Alcohol with any other Substance of Abuse during the last 90 days?: Unable to Obtain Positive Blood Alcohol level on Presentation? [PCS.BAL]: Unable to Obtain Evidence of Increased Autonomic Activity (i.e. HR>120, tremor, sweating, agitation, nausea)?: Unable to Obtain Result: 4 Time Spent with Patient Time Spent with Patient: <25 minutes Time was spent: preparing to see the patient(eg.review tests), ordering medications,tests, procedures, indepentently interpreting results, counseling the patient and care coordination
[2022-06-23] MEDS: levETIRAcetam 1,000 MG in Normal Saline 100 ML 382 MG IVPB (12:10)
--- NOTE | 2022-06-23 12:17 | DSE_ITS ---
Date of service: 06/23/22 Time of Service: 12:17 DS: Diagnosis Discharge Diagnosis (1) Alcohol withdrawal seizure: Status: Acute Asessment and Plan: No further seizures were observed from the time he was admitted to the emergency department through discharge. Patient was treated with Keppra 1000 mg IV every 12 hours. He was treated for his alcohol withdrawal with phenobarbital per high-dose phenobarbital protocol at 10 mg/kg IV loading dose. Although as needed repeat dosing of phenobarbital was ordered he did not require any further phenobarbital after the initial loading dose. His CIWA scores were low for the last 24 hours with no observable signs of acute alcohol withdrawal. He was treated with thiamine and folic acid and multivitamin. He was discharged in markedly improved condition with recommendations to refrain from further alcohol use. Is also recommended follow-up with a neurologist at the [facility] for further evaluation and treatment of his seizures as well as evaluation of his ventriculomegaly which was seen on his MRI scan. (2) Alcohol abuse: Status: Chronic Asessment and Plan: As above (3) Pulmonary infiltrates: Status: Acute Asessment and Plan: CTA of his chest showed no pulmonary embolus. Bibasilar infiltrates were seen but he had no clinical signs or symptoms of pneumonia. He had no hypoxemia and no fevers. He was not treated with antibiotics. Although his WBCs were elevated on admission they normalized overnight with no antibiotic treatment. The leukocytosis is felt to be secondary to the seizure. However because of his smoking history and the bibasilar infiltrates on his CAT scan it is recommended he have a follow-up CT of his chest in 4 to 6 weeks to ensure resolution. Most likely the infiltrates are secondary to atelectasis. (4) Cerebral ventriculomegaly: Status: Acute Asessment and Plan: As part of his seizure work-up and EEG was performed but has not yet been read. MRI scan of the brain was performed without contrast and shows ventriculomegaly as well as small vessel microvascular changes. The ventriculomegaly was out of proportion to normal age-related changes of the brain and therefore consideration should be made for possible underlying normal pressure hydrocephalus. Is recommended patient follow-up with a neurologist close to home probably at the [facility] for further evaluation of the ventriculomegaly. Patient does have some symptoms that could overlap with normal pressure hydrocephalus including mild cognitive impairment of executive function as noted by his children. Patient also has ambulatory dysfunction however he also has had spinal surgery in the past year with Sue rods. Patient also has chronic urinary tract symptoms including urinary hesitancy and urgency. However patient does have a history of BPH and t akes Flomax. Therefore is recommended that neurology evaluate him and consider performing high-volume cerebral spinal fluid withdrawal i.e. 30 to 50 mL with careful evaluation of his gait before and after the spinal tap to see if there is any improvement in his gait. Discharge Plan Disposition Patient Disposition: Home Condition: Improving Discharge Details Reason For Visit: Alcohol Withdrawel Seizure Admit Date/Time: 06/21/22 19:27 Admit Provider: Surekha Linares Attending Provider: Surekha Linares Primary Care Provider: Mike Hooker Home Meds and New Rx's Prescriptions: New folic acid 1 mg Tablet 1 mg PO QAM Qty: 30 0RF multivitamin [Multiple Vitamins] Tablet 1 tab PO QAM Qty: 30 0RF thiamine mononitrate (vit B1) [Vitamin B-1 (mononitrate)] 100 mg Tablet 100 mg PO QAM Qty: 30 0RF levetiracetam [Keppra] 1,000 mg tablet 1,000 mg PO BID Qty: 60 0RF Continued tamsulosin [Flomax] 0.4 mg Capsule 0.4 mg PO DAILY Discharge Instructions Additional Instructions: No driving until you are cleared by a neurologist regarding her seizures. No tub baths or swimming nor any physical activities that would put your health at risk in the event of a seizure. Examples include the following but are not limited to these activities such as flying, boating, climbing up ladders, rockclimbing, working with dangerous machinery in which you could be injured if you were to have sudden loss of consciousness. All of these activities could put your life in danger in the event that you have a seizure while participating in these activities and all should be avoided until you are cleared by a neurologist regarding your seizures. Your CT scan of your chest was performed when you were admitted through the emergency department. This showed infiltrates at the bases of both lungs which most likely represents atelectasis which is collapse of the small airways secondary to hypoventilation. Clinically you did not have any symptoms of pneumonia and were not treated with any antibiotics. Nevertheless the infiltrates on the CT scan should be followed up with a repeat chest x-ray or CT scan in 4 to 6 weeks to ensure that these have resolved. Infiltrates on x-rays and CAT scans is a nonspecific finding and can represent atelectasis or pneumonia or even possible lung tumors. For this reason we are recommending a follow-up imaging of your chest within the next few weeks. Your MRI scan of your brain demonstrated ventriculomegaly which is an enlargement of the fluid-filled spaces of the brain and these were enlarged out of proportion to the normal age-related changes. It is possible that you may have a condition called normal pressure hydrocephalus. You should follow-up with a neurologist at the [facility] for further evaluation of your seizures and your MRI findings. Referrals: [facility] Neurology [Other] (Referral was sent to [facility] and they will reach out with you for an appointment) Activity:: Activity as Tolerated Equipment/Supplies:: No Equipment Needed Diet:: Normal Diet Discharge Orders Discharge Orders: Discharge Order (Routine); Ordered 06/23/22 Ordered By: Frederick Hughes DS: Summary Time Spent with Patient providing and/or coordinating discharge services: Greater than 30 minutes Specific discharge activities: Interview/exam of patient; review of discharge instructions, completion of prescriptions/discharge instructions; discussion w/ nursing and CM; documentation of hospital visit Status at Discharge Functional status at discharge: independent ambulation Overall status at discharge: patient is back to baseline Mental Status: mental status grossly normal Speech and Movement: speech and movement normal Mood: congruent mood Affect: normal affect Exam Narrative Exam Narrative: Edin is alert he is oriented to person place and circumstance. He is much more agreeable today compared to yesterday. He indicated his gratefulness to his nurses and intends to put in a complementary note. He has no tremors. No signs of withdrawal no diaphoresis no hallucinations. Psych Mental Status: mental status grossly normal Speech and Movement: speech and movement normal Mood: congruent mood Affect: normal affect DS: Data Vitals/I&O Vitals and I&O: Vital Signs Temperature 37.1 C 06/23/22 07:39 Temperature Source Temporal Artery Scan 06/23/22 07:39 Pulse 77 06/23/22 07:39 Pulse 66 06/23/22 06:01 Respiratory Rate 16 06/23/22 07:39 Respiratory Effort Normal, Non-Labored 06/23/22 07:39 Respiratory Depth Normal 06/23/22 07:39 Respiratory Pattern Normal 06/23/22 07:39 Blood Pressure 161/76 H 06/23/22 07:39 Blood Pressure Mean 104 06/23/22 07:39 Blood Pressure Position Supine 06/23/22 07:39 Pulse Oximetry 95 06/23/22 07:39 Respiratory End-tidal CO2 15 06/21/22 23:31 Oxygen Delivery Method Room Air 06/23/22 07:39 Oxygen Flow Rate 0 06/23/22 07:39 Pain Level 0 06/23/22 07:39 Comment RN notified 06/22/22 04:10 Intake & Output 06/22/22 06/23/22 06/23/22 23:59 11:59 23:59 Intake Total 220 / 668.8462 380 / 380 Output Total 475 / 850 350 / 350 Balance -255 / -181.1538 30 / 30 Weight 76 kg Intake: IV 220 / 468.8462 40 / 40 Oral 340 / 340 Output: Urine 475 / 850 350 / 350 Other: Urine Color Light Debra Yellow Urine Appearance Clear Clear Urine Odor Strong Normal Comment No void at this time. Stool Size Large Stool Characteristics Formed Voiding Methods Urinal Urinal Data Completed and Pending Completed studies during hospitalization [Text1]: Noncontrast CT scan of the head dated 06/21/2022: IMPRESSION: 1. The examination is limited due to patient motion artifact. 2. No acute intracranial process. 3. Findings were discussed with the emergency department on 06/21/2022. CTA of the chest dated 06/21/2022: FINDINGS: ?The examination is limited due to patient motion artifact. Tracheobronchial tree: Patent where visualized. Pulmonary parenchyma: There are bilateral basilar infiltrates present.? No architectural distortion. There is a calcified granuloma in the left lingula. Pulmonary Arteries: No evidence of filling defect to suggest pulmonary emboli. Mediastinum and Brii: No dominant adenopathy or fluid collection.? The esophagus is unremarkable.? Calcified lymph nodes are seen in the left hilum. Visualized thyroid gland: Unremarkable.? Pleura: No effusion or pneumothorax. Heart: The heart is not dilated. Coronary artery calcifications are present.? There is no evidence of right heart strain.? The RV to LV ratio is less than 1. No pericardial effusion.? Aorta: Thoracic aorta non-dilated. No evidence of dissection. Atherosclerosis is present. Upper abdomen:? Unremarkable. Soft tissues: Unremarkable.? Bones: Within normal limits for the patient's age.There are old healed left rib fractures.? Postsurgical changes are seen in the lower cervical and upper thora cic spine and the lower thoracic and lumbar spine. IMPRESSION: 1. No evidence of pulmonary embolism, thoracic aortic dissection or aneurysm.? 2. Bilateral dependent basilar infiltrates which may represent atelectasis.? Pneumonia cannot be entirely excluded.? Please correlate clinically. 3. Findings were discussed with Dr. Patiño at 3:33 p.m. on 06/21/2022. MRI scan of the brain dated 06/21/2022: FINDINGS: CEREBRAL PARENCHYMA: There is no evidence of intracranial hemorrhage, mass effect, or shift of midline structures.? There are no extra-axial fluid collections.? No evidence of cerebellar tonsillar ectopia. None size of the ventricles is somewhat out of proportion when compared to the size of the overlying cortical sulci.? Possible normal pressure hydrocephalus. There is no significant focal signal abnormality in the cerebellar hemispheres nor within the tracey, midbrain, and thalami. There are multiple individual and confluent foci of FLAIR bright signal abnormality in the periventricular white matter, not associated with hemorrhage or surrounding edema nor restricted diffusion. There is no significant focal signal abnormality evident on diffusion imaging to suggest acute ischemic event. SWI: No evidence of microhemorrhages. PITUITARY GLAND: No mass nor parasellar abnormality. No obvious abnormality in the cavernous sinuses. FLOW VOIDS: The expected flow void are noted. No evidence of obvious aneurysm nor obvious vascular malformation. PARANASAL SINUSES: The visualized paranasal sinuses appear unremarkable. No obvious finding ORBITS: No obvious findings. IMPRESSION: 1. Multiple small foci of signal abnormality in the periventricular white matter probably consistent with chronic small vessel ischemic changes. 2. Size of the lateral and 3rd ventricles somewhat prominent and out of proportion compared to the size of the overlying cortical sulci.? Possibility of normal pressure hydrocephalus.? Correlation with any clinical signs of dementia, gait disturbance, and incontinence recommended PFS All Active Problems (Updated 06/23/22 @ 12:23 by Frederick Hughes MD) Cerebral ventriculomegaly (Acute) Pulmonary infiltrates (Acute) Discharge planning issues (Acute) DVT prophylaxis (Acute) Alcohol abuse (Chronic) Alcohol withdrawal seizure (Acute) Medical History BPH (benign prostatic hyperplasia) Seizure 2021, thought to be due to dehydration/ETOH withdrawal Surgical History History of fusion of cervical spine History of lumbar fusion Social History Smoking/Tobacco Use Status: Former Tobacco Use tobacco type: cigarettes Quit Date: 04/22/12 Pack-years: 30 Smoking risk assessment performed?: Yes Alcohol Intake: current Alcohol Intake frequency: 3 or more drinks per day Alcohol type: beer Drug use: Daily Substance use type: marijuana Time Spent with Patient Time Spent with Patient: <45 minutes Time was spent: preparing to see the patient(eg.review tests), ordering medications,tests, procedures, counseling the patient and care coordination
--- NOTE | 2022-06-23 13:41 | CMDISCH_ITS ---
- If Service Date Differs Date of service: 06/23/22 Time of Service: 13:41 LACE Index Scoring Tool - Questions: Length of Stay (in days): 2 Acuity (Admit via E.D.?): Yes E.D. Visits: 1 - Answers: Total Score: 6 Risk of Readmission: Low Risk Care Management Discharge Reason for Hospitalization: Alcohol withdrawal seizure Discharge Plan: Edin is discharged home via private vehicle with son Aime. Edin will follow up with community providers and discharge plan of care as pr escribed. Referral to [facility] Neurology is faxed and will contact patient to schedule. Pts son Aime is encouraged to contact [facility] Neurology directly about the appointment there are scheduling concerns. New RX's are printed. Aime shares that he will support Edin following discharge and check on him frequently. Patient/Family Education Needs: Review discharge instructions, limitations, medications and plan to follow up with [facility] Neurology and community providers. Discuss ask me three.
--- NOTE | 2022-06-23 21:20 | PDOC.EEG ---
Neurology EEG EEG: [facility] Department of Neurology INPATIENT EEG REPORT Date of Recordin06/22/22 Interpreting Physician: Dr. Joya Cespedes Reason for study: Wing Villa is a 76 year-old with ETOH abuse admitted following suspected seizure. Current Medications: Home Medications Medication Instructions Recorded Confirmed Type tamsulosin 0.4 mg capsule (Flomax) 0.4 mg PO DAILY 06/21/22 06/21/22 History folic acid 1 mg tablet 1 mg PO QAM #30 tabs 06/23/22 Rx levetiracetam 1,000 mg tablet 1,000 mg PO BID #60 tabs 06/23/22 Rx (Keppra) multivitamin (Multiple Vitamins 1 tab PO QAM #30 tabs 06/23/22 Rx tablet) thiamine mononitrate (vit B1) 100 100 mg PO QAM #30 tabs 06/23/22 Rx mg tablet (Vitamin B-1 (mononitrate)) METHODS: A 21 channel digitized electroencephalogram was performed in the [facility] Med/Surg Floor or ICU. The 10/20 international system of electrode placement was used and bipolar and referential electrode montages were recorded. In addition to EEG the patient was monitored for EKG and lateral/vertical eye movements. Activation procedures of photic stimulation and hyperventilation were performed if applicable. Video was used during activation procedures and during events where applicable. The duration of the recording was 30 minutes. DESCRIPTION OF EEG: The patient was noted to be awake, drowsy, and asleep during the recording. During maximal wakefulness a 9-Hz posterior background rhythm was present which was well-modulated, symmetrical, reactive to eye opening, and of moderate voltage. With eye opening the background activity changed to a low voltage mixture of alpha, beta, and occasional theta range frequencies. Faster frequencies were present in the bilateral anterior head regions. There was a normal anterior-posterior voltage gradient. During drowsiness, there was attenuation of the posterior dominant background rhythm and vertex waves. Stage II sleep was present with symmetrical sleep spindles, K-complexes, and vertex waves. There was a single high-amplitude [id number] wave at C4 at 14:23; with occasional sharp-waves at C4 throughout the recording, more prominent during drowsiness and sleep. Activating Procedures: Photic stimulation was performed which produced no posterior driving response. Hyperventilation was not performed. EKG: EKG revealed normal sinus rhythm. INTERPRETATION: This EEG is abnormal due to a single [id number] wave at C4; with occasional sharp-waves at C4 throughout the recording. 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 Clinical correlation is advised. Joya Cespedes MD
== END 2022-06-23 13:45 | disposition home or self-care (01) | DRG 897 ==
LOC: ER 19:50 → ICU 20:51
PROVIDERS: Admitting Provider Internal Medicine; Emergency Provider Physician Assistant; Visit Provider Internal Medicine
DX: F10.139 Alcohol abuse with withdrawal, unspecified (principal); E87.20 Acidosis, unspecified; J98.11 Atelectasis; R56.9 Unspecified convulsions; G93.89 Other specified disorders of brain; R91.8 Other nonspecific abnormal finding of lung field; R09.02 Hypoxemia; R00.0 Tachycardia, unspecified; N40.0 Benign prostatic hyperplasia without lower urinary tract symptoms; Z98.1 Arthrodesis status; Z87.891 Personal history of nicotine dependence; F12.90 Cannabis use, unspecified, uncomplicated; R26.89 Other abnormalities of gait and mobility; E86.0 Dehydration
CPT/HCPCS: 36415; 36416; 71275; 80048; 80053; 80307; 82550; 82962; 84145; 87637; 93005; 95819; 96361; 96365; 96366; 96368; 99285; 70450; 70551; 80320; 80329; 81003; 82607; 82746; 83605; 83735; 84484; 85025; 93010; 99232; 99239; 99291; J1644; J1953; J2060; J2560

== ENCOUNTER → 2022-06-22 08:15 | Outpatient (BNVA) | payer MEDICARE, SELFPAY | PROVIDERS: Visit Provider Psychiatry & Neurology Neurology ==